=== PATIENT | female | born 1970 | race Caucasian/White ===

== ENCOUNTER 2019-06-27 11:49 | Emergency (ER) | payer OTHER ==
[~2019-06-27] VITALS: Ht 162.6 cm; Wt 69.4 kg
[2019-06-27 12:01] VITALS: BP 131/75; Ht 162.6 cm; Wt 69.4 kg
== END 2019-06-27 15:27 | disposition left against medical advice (07) ==
LOC: ED 11:49
DX: Z53.21 Procedure and treatment not carried out due to patient leaving prior to being seen by health care provider (principal)